=== PATIENT | female | born 1935 | race Caucasian/White ===

== ENCOUNTER → 2021-04-30 | Outpatient (CLI) | payer MEDICARE, OTHER ==
[~2021-04-30] MED LIST: 8 HOUR PAIN RE650 MG PO; ASPIRIN EC81 MG PO; CALCIUM + VITA1 EACH PO; CALCIUM 600 +1 EAC3 PO; COZAAR100 MG PO; CRESTOR10 MG PO; DRISDOL1250 MCG PO; ECOTRIN81 MG PO; FLONASE 0.05% N16 GM; HYDRALAZINE HCL50 MG PO; HYDROCODON-ACE1 EAC4 PO; NIFEREX 150 MG150 MG PO; NITROSTAT0.4 MG SL; NORVASC2.5 MG PO; PEPCID20 MG PO; PROTONIX40 MG PO; SINGULAIR10 MG PO; TOPROL XL25 MG PO; TYLENOL 8 HOUR650 MG PO; ULTRAM50 MG PO; VITAMIN D21250 MCG PO
[2021-04-30 10:06] LABS: HEMOGLOBIN 8.6 gm/dl (12.3-15.3); RED BLOOD COUNT 2.98 M/UL (4.00-5.10)
== END ==
LOC: EDSTATUS 08:00 → OPSV2 08:00
PROVIDERS: Orthopaedic Surgery
DX: Z01.818 Encounter for other preprocedural examination (principal); M16.11 Unilateral primary osteoarthritis, right hip; Z88.5 Allergy status to narcotic agent; R94.31 Abnormal electrocardiogram [ECG] [EKG]; I44.7 Left bundle-branch block, unspecified
CPT/HCPCS: 36415; 80048; 85025; 93005

== ENCOUNTER → 2021-05-12 | Outpatient (CLI) | payer MEDICARE, OTHER ==
[~2021-05-12] MED LIST changes: +CYCLOBENZAPRINE10 MG PO
== END ==
LOC: LAB 08:27
PROVIDERS: Orthopaedic Surgery
DX: Z01.812 Encounter for preprocedural laboratory examination (principal)
CPT/HCPCS: 36415; 80048; 86850; 86900; 86901; 86920

== ENCOUNTER 2021-05-13 05:39 | Day surgery (SDC) | payer MEDICARE, OTHER ==
[~2021-05-13] VITALS: Ht 152.4 cm; Wt 49.9 kg
[~2021-05-13 05:39] MED LIST changes: -CYCLOBENZAPRINE10 MG PO
[2021-05-13 06:40] LABS: HEMOGLOBIN 9.1 gm/dl (12.3-15.3); RED BLOOD COUNT 3.01 M/UL (4.00-5.10); WHITE BLOOD COUNT 5.8 K/UL (4.5-11.0)
[2021-05-13] MEDS ORDERED: ULTRAM50 MG PO (10:52)
[2021-05-14 04:46] LABS: HEMOGLOBIN 8.5 gm/dl (12.3-15.3); RED BLOOD COUNT 2.94 M/UL (4.00-5.10)
[2021-05-14 04:52] LABS: WHITE BLOOD COUNT 12.6 K/UL (4.5-11.0)
[2021-05-14] MEDS ORDERED: ASPIRIN EC81 MG PO (11:10)
[2021-05-14] MEDS ORDERED: CYCLOBENZAPRINE10 MG PO (11:10)
--- NOTE | 2021-05-14 12:53 | NUR ---
report called to home health , awaiting teaching per pt and pt will be dishcarged.
== END 2021-05-14 15:55 | disposition home health service (06) ==
LOC: OR 05:39 → M/S 12:13 → OR 05-14 15:55
PROVIDERS: Orthopaedic Surgery
DX: M16.11 Unilateral primary osteoarthritis, right hip (principal); G89.29 Other chronic pain; I11.9 Hypertensive heart disease without heart failure; E78.5 Hyperlipidemia, unspecified; M41.9 Scoliosis, unspecified; Z88.5 Allergy status to narcotic agent; Z79.82 Long term (current) use of aspirin; Z79.899 Other long term (current) drug therapy; Z20.822 Contact with and (suspected) exposure to COVID-19
CPT/HCPCS: 36415; 72170; 76000; 80048; 83735; 85025; 85027; 97110; 97110-GP-CQ; 97116-GP-CQ; 97162; 97166; 97530-GP-CQ; 97535; C1776; J0171; J0690; J1100; J1170; J2001; J2250; J2370; J2704; J2795; J3370; J7030; J7050; J7120